=== PATIENT | male | born 1965 | race Caucasian/White ===

== ENCOUNTER 2021-04-04 22:39 | Emergency (ER) | payer SELFPAY ==
[~2021-04-04] VITALS: Ht 172.7 cm; Wt 72.6 kg
[2021-04-04 23:35] VITALS: BP 134/58
--- NOTE | 2021-04-04 23:40 | NUR ---
TO LOBBY A/W BED AMBULATORY
[2021-04-05] MEDS ORDERED: KETOROLAC 60 MG/2 ML VIAL IM ONE (02:05)
[2021-04-05] MEDS ORDERED: ONDANSETRON 4 MG ODT PO ONE (02:05)
[2021-04-05 02:22] LABS: BASOPHILS % (AUTO) 0.3 % (0.0-2.0); HEMATOCRIT 43.5 % (36-52); HEMOGLOBIN 14.6 g/dL (12.0-18.0); LYMPHOCYTES # (AUTO) 1.5 K/uL (2.0-11.5); LYMPHOCYTES % (AUTO) 9.4 % (20.5-51.1); MEAN CORPUSCULAR HEMOGLOBIN 32 pg (27-31); MEAN CORPUSCULAR HGB CONC 34 g/dL (33-37); MEAN CORPUSCULAR VOLUME 94.3 fL (80-94); MONOCYTES # (AUTO) 1.1 K/uL (0.8-1.0); MONOCYTES % (AUTO) 6.5 % (1.7-9.3); NEUTROPHILS # (AUTO) 13.7 K/uL (1.8-7.7); NEUTROPHILS % (AUTO) 83.8 % (42.2-75.2); PLATELET COUNT (AUTO) 223 K/uL (140-450); RED BLOOD CELL COUNT(AUTO) 4.61 MIL/uL (4.20-6.10); RED CELL DISTRIBUTION WIDTH 13.1 % (11.6-13.7); WHITE BLOOD COUNT (AUTO) 16.4 K/uL (4.8-10.8)
--- NOTE | 2021-04-05 02:35 | NUR ---
SEEN AND EXAMINED BY LALO WITH ORDERS, CARRIED OUT.
[2021-04-05 02:37] LABS: ANION GAP 10.5 (8-16); CARBON DIOXIDE 30.5 mmol/L (21-32); CREATININE 1.4 mg/dL (0.6-1.3)
--- NOTE | 2021-04-05 02:56 | NUR ---
PT RETURN FROM CT TO ER LOBBY
--- NOTE | 2021-04-05 04:00 | NUR ---
ALL RESULTS BACK AND NOTED BY ERMD, AND FOR D/C
[2021-04-05 04:30] VITALS: BP 121/68
--- NOTE | 2021-04-05 04:30 | NUR ---
Patient discharged with v/s stable. Written and verbal after care instructions given and explained. Patient alert, oriented and verbalized understanding of instructions. Ambulatory with steady gait. All questions addressed prior to discharge. ID band removed. Patient advised to follow up with PMD. Rx of FLOMAX, IBUPROFEN, HYDROCODONE given. Patient educated on indication of medication including possible reaction and side effects. Opportunity to ask questions provided and answered.
[2021-04-05] MEDS ORDERED: TAMS0.4C96 PO (04:34)
[2021-04-05] MEDS ORDERED: ACET-9527 PO (04:34)
[2021-04-05] MEDS ORDERED: IBUP-2213 PO (04:34)
== END 2021-04-05 04:30 | disposition home or self-care (01) ==
LOC: MED 22:39
DX: N20.0 Calculus of kidney (principal); N23 Unspecified renal colic; F17.200 Nicotine dependence, unspecified, uncomplicated; Z79.899 Other long term (current) drug therapy
CPT/HCPCS: 36415; 74176; 80048; 85025; 96372; 99284; J1885; Q0162